=== PATIENT | female | born 1945 | race Caucasian/White ===

== ENCOUNTER 2019-09-15 10:37 | Observation (INO) ==
[2019-09-15] MEDS ORDERED: CeFAZolin Syr 2,000MG/20 ML 2,000 MG/20 ML SYRINGE IVPB ONE (11:12)
[2019-09-15] MEDS ORDERED: Ringers Solution, Lactated 1,000 ML IVC SCH ×2 (11:15→15:36)
[2019-09-15] MEDS ORDERED: *HR* Midazolam HCl 2 MG/2 ML VIAL ONE (11:22)
[2019-09-15] MEDS ORDERED: Famotidine 20 MG/2 ML VIAL IVP ONE (11:22)
[2019-09-15] MEDS ORDERED: *HR* Propofol 200 MG/20 ML VIAL IVP ONE (11:22)
[2019-09-15] MEDS ORDERED: *HR* FentaNYL (PF) 100 MCG/2 ML VIAL ONE ×2 (11:22→12:52)
[2019-09-15] MEDS ORDERED: Acetaminophen IV 1,000 MG/100 ML INFUS..BTL IVPB ONE (11:23)
[2019-09-15] MEDS ORDERED: Pregabalin 75 MG CAPSULE PO ONE (11:23)
[2019-09-15] MEDS ORDERED: Ondansetron 4 MG/2 ML VIAL ONE (11:53)
[2019-09-15] MEDS ORDERED: Lidocaine -MPF 2% 2 ML VIAL ONE (11:53)
[2019-09-15] MEDS ORDERED: Ropivacaine/PF 0.5% 30 ML VIAL ONE (12:16)
[2019-09-15] MEDS ORDERED: ROPIVACAINE/PF/NS 0.25% 1 EACH SYRINGE INTRAART ONE (12:17)
[2019-09-15] MEDS ORDERED: Ondansetron 4 MG/2 ML VIAL IVP ONE (12:23)
[2019-09-15] MEDS ORDERED: *HR* Meperidine 25 MG/ML SYRINGE IVP PRN (12:23)
[2019-09-15] MEDS ORDERED: Ethanol\\Acetic Acid\\Na Ace\\Ben 1,000 ML IRRIG.SOLN IR ONE (12:23)
[2019-09-15] MEDS ORDERED: *HR* HYDROmorphone (PF) 1 MG/ML SYRINGE IVP PRN (12:23)
[2019-09-15] MEDS ORDERED: *HR* OxyCODONE Immed Rel 5 MG TABLET PO PRN (12:23)
[2019-09-15] MEDS ORDERED: Total Joint Mixture (50 ml) IR ONE (12:40)
[2019-09-15] MEDS ORDERED: Tranexamic Acid 1,000 MG/10 ML VIAL ONE (12:59)
[2019-09-15] MEDS ORDERED: Dexamethasone 4 MG/ML VIAL ONE (13:01)
[2019-09-15] MEDS ORDERED: EPHEDrine 50 MG/ML VIAL ONE (13:04)
[2019-09-15] MEDS ORDERED: *HR* PHENYLEPHRINE 1,000 MCG/10 ML SYRINGE IVP ONE (13:09)
[2019-09-15] MEDS ORDERED: *HR* Succinylcholine 200 MG/10 ML VIAL IVP ONE (13:27)
[2019-09-15] MEDS ORDERED: Lidocaine HCL 4 ML Topical Solution (Laryng-O-Jet Kit Sterile Pak) TP ONE (13:27)
[2019-09-15] MEDS ORDERED: *HR* HYDROMORPHONE 2 MG/ML VIAL ONE (14:03)
[2019-09-15 14:50] LABS: Hematocrit 38.6 % (35.3-44.9); Hemoglobin 12.8 g/dL (11.5-15.4)
[2019-09-15] MEDS ORDERED: MOM Conc 10 ML UD.LIQ PO PRN (15:36)
[2019-09-15] MEDS ORDERED: Fluticasone Propionate Nasal 50 MCG/SPRAY BOTTLE NS PRN (15:36)
[2019-09-15] MEDS ORDERED: Ondansetron 4 MG/2 ML VIAL IVP PRN (15:36)
[2019-09-15] MEDS ORDERED: *HR* Promethazine 25 MG/ML VIAL IVP PRN (15:36)
[2019-09-15] MEDS ORDERED: Sennosides 8.6 MG TABLET PO PRN (15:36)
[2019-09-15] MEDS ORDERED: Naloxone 0.4 MG/ML INJ IVP PRN (15:36)
[2019-09-15] MEDS ORDERED: Temazepam 15 MG CAPSULE PO PRN (15:36)
[2019-09-15] MEDS ORDERED: traMADol 50 MG TABLET PO PRN (15:36)
[2019-09-15] MEDS: Ascorbic Acid 500 MG TABLET PO SCH (16:34)
[2019-09-16 07:03] LABS: Basophils % 0.2 %; Eosinophils % 0.4 %; Hematocrit 35.1 % (35.3-44.9); Hemoglobin 11.6 g/dL (11.5-15.4); Immature Granulocytes % 0.3 % (0-4); Lymphocytes # 1.3 K/mcL (0.6-4.6); Lymphocytes % 13.9 %; Mean Corpuscular Hemoglobin 29.3 pg (28.0-33.3); Mean Corpuscular Volume 88.6 fL (83.0-100.0); Mean Platelet Volume 9.2 fL (9.4-12.4); Monocytes # 0.8 K/mcL (0.0-1.3); Neutrophils # 7.3 K/mcL (1.6-8.9); Platelet Count 269 K/mcL (140-400); Red Blood Count 3.96 M/mcL (3.82-4.97); Red Cell Distribution Width 13.3 % (11.5-14.5); Segmented Neutrophils % 77.2 %; White Blood Count 9.5 K/mcL (4.3-11.1)
[2019-09-16 07:30] LABS: BUN/Creatinine Ratio 29 (6-26); Blood Urea Nitrogen 20 mg/dL (8-23); Calcium 8.4 mg/dL (8.6-10.3); Carbon Dioxide 29 mEq/L (23-29); Chloride 100 mEq/L (98-107); Glucose 97 mg/dL (70-105); Osmolality,Calculated 287 (280-300); Potassium 3.5 mEq/L (3.5-5.1); Sodium 137 mEq/L (136-145); eGFR For African Americans > 60 (> 60); eGFR For Non-African Americans > 60 (> 60)
[2019-09-16] MEDS: Loratadine 10 MG TABLET PO SCH (07:41)
[2019-09-16] MEDS: Ascorbic Acid 500 MG TABLET PO SCH ×2 (07:41→14:50)
[2019-09-16] MEDS: Cholecalciferol (D-3) 1,000 UNIT (25MCG) TABLET PO SCH (07:41)
[2019-09-16] MEDS: HYDROcodone BIT/Homatropine 5 MG TABLET PO PRN ×3 (07:41→22:13)
[2019-09-16] MEDS: Multivit/Ca/Min/Fe/FA 1 TAB TABLET PO SCH (07:42)
[2019-09-16] MEDS ORDERED: [UNRECOGNIZED DRUG - OTHER] PO SCH (09:00)
[2019-09-16] MEDS ORDERED: NON-FORMULARY MEDICATION 1 EACH EACH (Mv-Min/Iron/Folic/Calcium/Vitk [Women's Multivitamin PO SCH (09:00)
[2019-09-16] MEDS ORDERED: FISH OIL PO SCH (09:00)
[2019-09-16] MEDS ORDERED: OMEGA PO SCH (09:00)
[2019-09-16] MEDS ORDERED: DHA PO SCH (09:00)
[2019-09-16] MEDS ORDERED: EPA PO SCH (09:00)
[2019-09-16] MEDS: *HR* Enoxaparin 30 MG/0.3 ML SYRINGE SQ SCH ×2 (09:21→16:35)
[2019-09-16] MEDS: *HR* OxyCODONE Immed Rel 5 MG TABLET PO PRN ×4 (09:22→23:16)
[2019-09-17 04:27] LABS: Basophils % 0.3 %; Eosinophils # 0.1 K/mcL (0.0-0.6); Eosinophils % 1.3 %; Hematocrit 34.9 % (35.3-44.9); Immature Granulocytes % 0.4 % (0-4); Lymphocytes # 1.9 K/mcL (0.6-4.6); Lymphocytes % 19.9 %; Mean Corpuscular HGB Conc 34.4 g/dL (31.6-35.5); Mean Corpuscular Hemoglobin 30.2 pg (28.0-33.3); Mean Corpuscular Volume 87.7 fL (83.0-100.0); Mean Platelet Volume 9.3 fL (9.4-12.4); Monocytes # 0.9 K/mcL (0.0-1.3); Monocytes % 9.6 %; Neutrophils # 6.6 K/mcL (1.6-8.9); Platelet Count 261 K/mcL (140-400); Red Blood Count 3.98 M/mcL (3.82-4.97); Red Cell Distribution Width 13.3 % (11.5-14.5); Segmented Neutrophils % 68.5 %; White Blood Count 9.7 K/mcL (4.3-11.1)
[2019-09-17 04:45] LABS: BUN/Creatinine Ratio 23 (6-26); Blood Urea Nitrogen 16 mg/dL (8-23); Calcium 8.4 mg/dL (8.6-10.3); Carbon Dioxide 31 mEq/L (23-29); Chloride 93 mEq/L (98-107); Glucose 119 mg/dL (70-105); Osmolality,Calculated 270 (280-300); Potassium 3.5 mEq/L (3.5-5.1); Sodium 129 mEq/L (136-145); eGFR For African Americans > 60 (> 60); eGFR For Non-African Americans > 60 (> 60)
[2019-09-17] MEDS: *HR* Enoxaparin 30 MG/0.3 ML SYRINGE SQ SCH (05:53)
[2019-09-17] MEDS: HYDROcodone BIT/Homatropine 5 MG TABLET PO PRN (05:53)
[2019-09-17 07:30] VITALS: BP 129/78
[2019-09-17] MEDS: Multivit/Ca/Min/Fe/FA 1 TAB TABLET PO SCH (08:35)
[2019-09-17] MEDS: Cholecalciferol (D-3) 1,000 UNIT (25MCG) TABLET PO SCH (08:35)
[2019-09-17] MEDS: Loratadine 10 MG TABLET PO SCH (08:35)
[2019-09-17] MEDS: Ascorbic Acid 500 MG TABLET PO SCH (08:35)
[2019-09-17] MEDS: *HR* OxyCODONE Immed Rel 5 MG TABLET PO PRN (09:50)
== END 2019-09-17 12:03 | disposition home health service (06) ==
LOC: SAMDAY 10:37 → 3NENU 10:37
PROVIDERS: ADMIT Orthopaedic Surgery; ATTEND Orthopaedic Surgery